=== PATIENT | female | born 1935 | race Caucasian/White ===

== ENCOUNTER → 2017-01-17 | Outpatient (CLI) | payer MEDICARE, OTHER | LOC: CT 01-09 09:30 → OPSV 01-09 11:00 → CT 01-09 13:30 → OPSV 10:37 | DX: C18.0 Malignant neoplasm of cecum (principal); R07.89 Other chest pain; R10.9 Unspecified abdominal pain; R06.02 Shortness of breath; E86.0 Dehydration | CPT/HCPCS: 71260; 74160; 82565; 84520; 96360; 96361; J7030; J7050; Q9962 ==